=== PATIENT | female | born 1990 | race American Indian/Alaskan Native ===

== ENCOUNTER 2019-08-13 06:46 | Day surgery (SDC) | payer BC ==
[~2019-08-13 06:46] MED LIST: Lactated Ringers 1,000 ML IV SCH
[2019-08-13] MEDS ORDERED: fentaNYL 100 MCG/2 ML SDV ONE (07:11)
[2019-08-13] MEDS ORDERED: Propofol 200 MG/20 ML SDV ONE (07:11)
[2019-08-13] MEDS ORDERED: Midazolam 1 MG/ML 2 ML SDV ONE (07:11)
[2019-08-13] MEDS ORDERED: Lidocaine 2% 5 ML SDV ONE (07:11)
[2019-08-13] MEDS ORDERED: Bupivacaine 0.5% 10 ML SDV ONE (07:24)
[2019-08-13] MEDS ORDERED: Lidocaine 1% 20 ML MDV ONE (07:24)
--- NOTE | 2019-08-13 07:28 | PCM.PREANE ---
Preanesthetic Assessment - Anesthesia/Transfusion/Family Hx Anesthesia History: Prior Anesthesia Without Reaction Family History of Anesthesia Reaction: No Transfusion History: No Prior Transfusion(s) - Review of Systems General: No Symptoms Pulmonary: No Symptoms Cardiovascular: No Symptoms Gastrointestinal: No Symptoms Neurological: No Symptoms Other: Reports: None - Physical Assessment NPO Status Date: 08/12/19 Vital Signs: Last Vital Signs Temp 96.6 F L 08/13/19 06:55 Pulse 87 08/13/19 06:55 Resp 16 08/13/19 06:55 BP 142/70 H 08/13/19 06:55 Pulse Ox 100 08/13/19 06:55 Height: 5 ft 7 in Weight: 98.883 kg ASA Class: 2 Mental Status: Alert & Oriented x3 Airway Class: Mallampati = 2 Dentition: Reports: Normal Dentition Lungs: Clear to Auscultation, Normal Respiratory Effort Cardiovascular: Regular Rate, Regular Rhythm - Lab Values: Laboratory Last Values Urine HCG, Qual NEGATIVE (NEGATIVE) 08/13/19 07:00 - Allergies Allergies/Adverse Reactions: Allergies Allergy/AdvReac Type Severity Reaction Status Date / Time Sulfa (Sulfonamide Allergy Hives Verified 08/09/19 13:24 Antibiotics) - Blood Blood Available: No - Anesthesia Plan Pre-Op Medication Ordered: None - Acknowledgements Anesthesia Type Planned: General Anesthesia Pt an Appropriate Candidate for the Planned Anesthesia: Yes Alternatives and Risks of Anesthesia Discussed w Pt/Guardian: Yes Pt/Guardian Understands and Agrees with Anesthesia Plan: Yes Additional Comments: PMH: asthma- inactive x 9 months PLAN: mac or ga/lma PreAnesthesia Questionnaire - Past Health History Medical/Surgical History: Denies Medical/Surgical History HEENT History: Reports: Other (See Below) Other HEENT History: wears glasses Cardiovascular History: Reports: None Respiratory History: Reports: Asthma Gastrointestinal History: Reports: Chronic Constipation, GERD, Irritable Bowel Syndrome Genitourinary History: Reports: UTI, Recurrent [employer] History: Reports: Spontaneous Musculoskeletal History: Reports: Back Pain, Chronic Neurological History: Reports: None Psychiatric History: Reports: None Endocrine/Metabolic History: Reports: Obesity/BMI 30+ Hematologic History: Reports: None Immunologic History: Reports: None Oncologic (Cancer) History: Reports: None - Past Surgical History Head Surgeries/Procedures: Reports: None HEENT Surgical History: Reports: Myringotomy w Tube(s), Tonsillectomy Cardiovascular Surgical History: Reports: None Respiratory Surgical History: Reports: None GI Surgical History: Reports: None Female Surgical History: Reports: D&C, Tubal Ligation Endocrine Surgical History: Reports: None Neurological Surgical History: Reports: None Musculoskeletal Surgical History: Reports: Arthroscopic Knee Oncologic Surgical History: Reports: None Dermatological Surgical History: Reports: None - SUBSTANCE USE Smoking Status *Q: Never Smoker - HOME MEDS Home Medications: Home Meds Albuterol Sulfate [Albuterol Sulfate Hfa] 1 - 2 puff INH ASDIRECTED PRN [History] Magnesium Hydroxide [Milk of Magnesia] 1 dose PO DAILY 08/10/19 [History] - CURRENT (IN HOUSE) MEDS Current Meds: Current Medications Lactated Ringer's (Ringers, Lactated) 1,000 mls @ 125 mls/hr IV ASDIRECTED STARR Discontinued Medications Bupivacaine HCl (Sensorcaine-Mpf 0.5%) Confirm Administered Dose 10 ml .ROUTE .STK-MED ONE Stop: 08/13/19 07:25 Fentanyl (Sublimaze) Confirm Administered Dose 100 mcg .ROUTE .STK-MED ONE Stop: 08/13/19 07:12 Lidocaine (Xylocaine-Mpf 2%) Confirm Administered Dose 5 ml .ROUTE .STK-MED ONE Stop: 08/13/19 07:12 Lidocaine HCl (Xylocaine 1%) Confirm Administered Dose 20 ml .ROUTE .STK-MED ONE Stop: 08/13/19 07:25 Midazolam HCl (Versed 1 Mg/Ml) Confirm Administered Dose 2 mg .ROUTE .STK-MED ONE Stop: 08/13/19 07:12 Propofol (Diprivan 20 Ml) Confirm Administered Dose 400 mg .ROUTE .STK-MED ONE Stop: 08/13/19 07:12
[2019-08-13] MEDS ORDERED: Ondansetron 4 MG/2 ML SDV ONE (07:52)
[2019-08-13] MEDS ORDERED: Naloxone 0.4 MG/ML Syringe IVPUSH PRN (07:58)
[2019-08-13] MEDS ORDERED: Albuterol 0.083% 2.5 MG/3 ML Neb Soln NEB PRN (07:58)
[2019-08-13] MEDS ORDERED: Atropine 0.1 MG/ML 10 ML Syringe IVPUSH PRN ×2 (07:58)
[2019-08-13] MEDS ORDERED: fentaNYL 100 MCG/2 ML SDV IVPUSH PRN (07:58)
[2019-08-13] MEDS ORDERED: EPINEPHrine 1:10,000 1 MG/10 ML Syringe IVPUSH PRN (07:58)
[2019-08-13] MEDS ORDERED: 50% Dextrose in Water 50 ML Syringe IVPUSH PRN (07:58)
--- NOTE | 2019-08-13 08:34 | PCM.OPNOTE ---
- General Post-Op/Procedure Note Date of Surgery/Procedure: 08/13/19 Operative Procedure(s): Excision 2 cm left lower extremity pretibial mass. Pre Op Diagnosis: 2 cm pretibial mass in the left lower extremity Post-Op Diagnosis: Inclusion cyst Anesthesia Technique: General LMA (ASA II) Primary Surgeon: Kane Desir Fluid Replacement, Intraop: 500 EBL in mLs: 5 Condition: Good Free Text/Narrative:: DICTATION [id number] CPT CODE 61102
[2019-08-13] MEDS ORDERED: Lactated Ringers 1,000 ML IV SCH (08:45)
--- NOTE | 2019-08-13 11:22 | OR ---
SURGEON: Kane Desir M.D. DATE OF PROCEDURE: 08/13/2019 OPERATION PERFORMED: Excision of 2 cm left lower extremity mass. PRIMARY SURGEON: Kane Desir MD. ANESTHESIA: General LMA. ASA CLASSIFICATION: II. PREOPERATIVE DIAGNOSIS: Left lower extremity pretibial mass. POSTOPERATIVE DIAGNOSES: 1. Left lower extremity pretibial mass. 2. Inclusion cyst. ESTIMATED BLOOD LOSS: 5 mL. INTRAOPERATIVE FLUID REPLACEMENT: 500 mL of crystalloid. DESCRIPTION OF PROCEDURE: The patient was taken to the operating room, kept on the transfer cart in the supine position. Time-out was called for appropriate identification of the patient and procedure. Following satisfactory attainment of general anesthesia and placement of an LMA, the left lower extremity was prepped with DuraPrep solution. The skin was infiltrated with 10 mL of 0.5% Marcaine solution. A small skin ellipse was made over the mass and then using electrocautery the mass was dissected free. There was a small amount of sebaceous material that exuded from the mass. The mass was then removed in its entirety. Bleeding sites were electrocoagulated. The incision was then closed with interrupted 3-0 nylon sutures. The wound was dressed with a sterile Tegaderm pad. Sponge, needle, and instrument counts were all correct. Following emergence from anesthesia and extubation, the patient was taken to recovery room in stable condition. PUMA / BEATRICE /[id number]
--- NOTE | 2019-08-13 11:35 | PCM48HPAN ---
Post Anesthesia Note - EVALUATION WITHIN 48HRS OF ANESTHETIC Vital Signs in Normal Range: Yes Patient Participated in Evaluation: Yes Respiratory Function Stable: Yes Airway Patent: Yes Cardiovascular Function Stable: Yes Hydration Status Stable: Yes Pain Control Satisfactory: Yes Nausea and Vomiting Control Satisfactory: Yes Mental Status Recovered: Yes Vital Signs: Last Vital Signs Temp 97.0 F 08/13/19 08:15 Pulse 75 08/13/19 08:50 Resp 9 L 08/13/19 08:50 BP 135/89 08/13/19 08:50 Pulse Ox 96 08/13/19 08:50
--- NOTE | 2019-08-13 11:35 | PCM.POSTAN ---
POST ANESTHESIA ASSESSMENT - MENTAL STATUS Mental Status: Alert, Oriented - VITAL SIGNS Vital Signs: Last Vital Signs Temp 97.0 F 08/13/19 08:15 Pulse 75 08/13/19 08:50 Resp 9 L 08/13/19 08:50 BP 135/89 08/13/19 08:50 Pulse Ox 96 08/13/19 08:50 - RESPIRATORY Respiratory Status: Respiratory Rate WNL, Airway Patent, O2 Saturation Stable - CARDIOVASCULAR CV Status: Pulse Rate WNL, Blood Pressure Stable - GASTROINTESTINAL GI Status: No Symptoms - POST OP HYDRATION Hydration Status: Adequate & Stable
== END 2019-08-13 09:17 | disposition home or self-care (01) ==
LOC: MW.SDS 06:46
PROVIDERS: ATTEND Surgery
DX: L72.0 Epidermal cyst (principal); Z88.2 Allergy status to sulfonamides; Z79.899 Other long term (current) drug therapy; Z98.890 Other specified postprocedural states; Z87.09 Personal history of other diseases of the respiratory system; Z98.51 Tubal ligation status; Z82.5 Family history of asthma and other chronic lower respiratory diseases
CPT/HCPCS: 11403; 81025; 88304; J2001; J2250; J2405; J2704; J3010; J3490; J7120; 00400